=== PATIENT | female | born 1945 | race Two or more races ===

== ENCOUNTER 2018-08-26 16:28 | Inpatient (IN) | payer MEDICARE ==
[~2018-08-26] VITALS: Ht 162.6 cm; Wt 49.0 kg
--- NOTE | 2018-08-26 16:42 | NUR ---
BIB [facility] 79 FROM [facility] C/O MORE ALTERED THAN USUAL, LOW BP=77/51 CRAY FISHING HAND, 200ML NS GIVEN IN THE FIELD, RE=022. PT DENIES PAIN. DAUGHTER STATES SHE IS NORMALLY ALERT AND VERY CHATTY. SKIN INTACT, NO ACUTE DISTRESS NOTED. DENIES DIZZINESS, WEAKNESS. READY FOR EVAL.
[2018-08-26] MEDS ORDERED: ONDANSETRON HCL/PF 4 MG/2 ML VIAL IVP ONE (17:30)
[2018-08-26] MEDS ORDERED: IV NS 0.9% 1,000 ML BAG IV ONE ×2 (17:30→20:00)
[2018-08-26] MEDS ORDERED: ONDANSETRON HCL/PF 4 MG/2 ML VIAL ONE (17:30)
--- NOTE | 2018-08-26 17:45 | NUR ---
CLEARING HOUSE CLERK UNABLE TO DRAW BLOOD. STATES WILL GET SOMEONE ELSE.
--- NOTE | 2018-08-26 18:29 | NUR ---
PT TAKEN TO CT VIA TERRA
--- NOTE | 2018-08-26 19:02 | NUR ---
URINE COLLECTED AND SENT TO STAT LAB. PHLEB AT BEDSIDE FOR SECOND ATTEMPT
[2018-08-26] MEDS ORDERED: LEVOFLOXACIN 750 MG /D5W 150ML 150 ML IV ONE ×2 (19:19→19:30)
[2018-08-26 19:21] LABS: BASOPHILS # (AUTO) 0.1 /CMM (0.0-0.2); BASOPHILS % (AUTO) 0.7 % (0.0-2.0); HEMATOCRIT 49 % (33-45); HEMOGLOBIN 14.5 g/dL (11.5-14.8); LYMPHOCYTES # (AUTO) 0.9 /CMM (0.8-4.8); LYMPHOCYTES % (AUTO) 4.5 % (20.0-44.0); MEAN CORPUSCULAR HGB CONC 30 g/dl (31.0-36.0); MEAN CORPUSCULAR VOLUME 101 fL (82-100); MONOCYTES # (AUTO) 1.4 /CMM (0.1-1.30); MONOCYTES % (AUTO) 6.8 % (2.0-12.0); NEUTROPHILS # (AUTO) 18.6 /CMM (1.8-8.9); PLATELET COUNT (AUTO) 124 /CMM (150-450); RED BLOOD CELL COUNT(AUTO) 4.78 MIL/uL (4.0-5.2); WHITE BLOOD COUNT (AUTO) 21.1 K/uL (4.3-11.0)
[2018-08-26] MEDS ORDERED: CLINDAMYCIN IV RTU IN D5W 900 MG/50 ML PIGGYBACK IV ONE (19:30)
[2018-08-26 19:39] LABS: ALANINE AMINOTRANSFERASE 24 U/L (12-78); ALBUMIN 2.5 g/dL (3.4-5.0); ALKALINE PHOSPHATASE 81 U/L (46-116); ASPARTATE AMINOTRANSFERASE 31 U/L (15-37); BILIRUBIN,DIRECT 0.3 mg/dL (0.0-0.2); CALCIUM, SERUM 8.5 mg/dL (8.5-10.1); CARBON DIOXIDE 15 mmol/L (21-32); CREATININE 3.4 mg/dL (0.6-1.3); GLUCOSE 184 mg/dL (74-106); LIPASE 814 U/L (73-393); POTASSIUM 3.5 mmol/L (3.5-5.1); TOTAL PROTEIN, SERUM 6.3 g/dL (6.4-8.2)
[2018-08-26 19:43] LABS: SODIUM SERUM 183 mmol/L (136-145)
[2018-08-26 19:44] LABS: CHLORIDE 146 mmol/L (98-107)
[2018-08-26 19:45] LABS: UREA NITROGEN, BLOOD 80 mg/dL (7-18)
[2018-08-26 19:54] LABS: APPEARANCE,URINE Clear (CLEAR); BILIRUBIN,URINE SMALL (NEGATIVE); BLOOD, URINE Small Ery/uL (NEGATIVE); COLOR,URINE Yellow (YELLOW); KETONES,URINE Negative (NEGATIVE); LEUKOCYTE ESTERASE ,URINE Negative (NEGATIVE); NITRITE, URINE Negative (NEGATIVE); PH,URINE 5.5 (5.0-8.0); PROTEIN,URINE 100 mg/dl (NEGATIVE); UGLUCOSE Negative (NEGATIVE); UROBILINOGEN,URINE 0.2 EU/dL (0.2)
--- NOTE | 2018-08-26 20:07 | NUR ---
Patient is resting comfortably in bed with eyes closed. Easily aroused. VSS
[2018-08-26 20:19] LABS: BACTERIA,URINE Few /HPF (None Seen); MUCUS,URINE Few /LPF (None Seen); SQUAMOUS EPITHELIAL CELL,UR Moderate /HPF (None Seen); URINE AMORPHOUS URATE Many /HPF (None Seen); WBC,URINE 0-2 /HPF (0-3)
[2018-08-26] MEDS ORDERED: ACETAMINOPHEN 325 MG TABLET PO PRN (20:30)
[2018-08-26] MEDS ORDERED: TEMAZEPAM 15 MG CAPSULE PO PRN (20:30)
[2018-08-26] MEDS ORDERED: MAGNESIUM HYDROXIDE 30 ML UDC PO PRN (20:30)
[2018-08-26] MEDS ORDERED: HYDROCODONE/APAP 5/325MG 1 EACH TABLET PO PRN (20:30)
[2018-08-26] MEDS ORDERED: ONDANSETRON HCL/PF 4 MG/2 ML VIAL IVP PRN (20:30)
[2018-08-26] MEDS ORDERED: MAG HYDROX/AL HYDROX/SIMETH 30 ML UDC PO PRN (20:30)
[2018-08-26] MEDS ORDERED: Z GUARD REMEDY 2 OZ OINT TP PRN (20:30)
[2018-08-26] MEDS ORDERED: LEVOFLOXACIN 750 MG /D5W 150ML 750 MG in PREMIX 1 EA IV SCH (21:00)
[2018-08-26] MEDS ORDERED: AZTREONAM 1 G in IV NS 0.9% 100 ML IV SCH (21:00)
[2018-08-26 21:09] LABS: OSMOLALITY,URINE 541 mOS/kg (340-1090)
[2018-08-26 21:12] LABS: URINE SODIUM, RANDOM 17 mmol/l (40-220)
--- NOTE | 2018-08-26 21:33 | NUR ---
REPORT GIVEN TO NANO CARDONA FOR YOLANDA
--- NOTE | 2018-08-26 21:41 | NUR ---
ABX TO CONTINUE INFUSION ON FLOOR
--- NOTE | 2018-08-26 21:47 | NUR ---
PT TRANSFERRED TO FLOOR
[2018-08-26 22:00] VITALS: BP 91/60
--- NOTE | 2018-08-26 22:00 | NUR ---
rn notes patient arrived with levaquin IV infusing on Right forearm IV line. infused with no complications
[2018-08-26] MEDS: IV NS 0.9% 1,000 ML IV PRN (23:33)
[2018-08-27] VITALS: BP 98/52
--- NOTE | 2018-08-27 02:00 | NUR ---
RN NOTES PATIENT PULLED OUT IV LINE. INSERTED NEW IV AT LEFT FOREARM 22g. patient is non compliant and confused and also kept pulling the quality assurance monitor. SPoke with fidencio with new order for bilateral wrist restraints. orders noted and carried out.
[2018-08-27 04:00] VITALS: BP 109/50
[2018-08-27] MEDS ORDERED: AZTREONAM 1 G VIAL ONE (05:16)
[2018-08-27] MEDS: AZTREONAM 500 MG in IV NS 0.9% 50 ML IV SCH ×3 (05:18→20:31)
[2018-08-27 07:34] LABS: BASOPHILS # (AUTO) 0.1 /CMM (0.0-0.2); BASOPHILS % (AUTO) 0.3 % (0.0-2.0); HEMATOCRIT 42 % (33-45); HEMOGLOBIN 12.8 g/dL (11.5-14.8); LYMPHOCYTES # (AUTO) 1.6 /CMM (0.8-4.8); LYMPHOCYTES % (AUTO) 10.1 % (20.0-44.0); MEAN CORPUSCULAR HGB CONC 31 g/dl (31.0-36.0); MEAN CORPUSCULAR VOLUME 98 fL (82-100); MONOCYTES % (AUTO) 6.4 % (2.0-12.0); NEUTROPHILS # (AUTO) 13.1 /CMM (1.8-8.9); NEUTROPHILS % (AUTO) 83.2 % (43.0-81.0); PLATELET COUNT (AUTO) 85 /CMM (150-450); RED BLOOD CELL COUNT(AUTO) 4.25 MIL/uL (4.0-5.2); WHITE BLOOD COUNT (AUTO) 15.8 K/uL (4.3-11.0)
[2018-08-27 07:39] LABS: CALCIUM, SERUM 8.8 mg/dL (8.5-10.1); CARBON DIOXIDE 20 mmol/L (21-32); CREATININE 3.2 mg/dL (0.6-1.3); GLUCOSE 125 mg/dL (74-106); LIPASE 319 U/L (73-393); MAGNESIUM 2.3 mg/dL (1.8-2.4); PHOSPHORUS 2.2 mg/dL (2.5-4.9)
--- NOTE | 2018-08-27 07:40 | NUR ---
YOLANDA RN OPENING NOTES: RECEIVED PT IN BED. PT IS A/O X 1-2. NO SOB OR ACUTE SIGNS OF DISTRESS NOTED. BREATHING IS EVEN AND UNLABORED. PT ON 2 L VIA NC AND SATING AT 94%. SHE DENIES ANY PAIN AT THIS TIME. IV TO PT'S LEFT FA NOTED TO BE PATENT AND INTACT. NO REDNESS OR SIGNS OF INFILTRATION NOTED. BED IN LOW LOCKED POSITION, SIDE RAILS UP X3, CALL LIGHT WITHIN REACH. BILATERAL SOFT WRIST RESTRAINTS NOTED PT IS SEEN PULLING INVASIVE LINES. GOOD CAP REFILL AND PERIPHERAL PULSES NOTED. WILL CONTINUE TO MONITOR
[2018-08-27 07:44] LABS: CHOLESTEROL 158 mg/dL (<200); HDL CHOLESTEROL 27 mg/dL (40-60); LDL 103 mg/dL (0-99); THYROID STIMULATING HORMONE 0.011 uIU/mL (0.358-3.74); TRIGLYCERIDES 162 mg/dL (30-150)
[2018-08-27 07:47] LABS: CHLORIDE 145 mmol/L (98-107); POTASSIUM 2.5 mmol/L (3.5-5.1); SODIUM SERUM 180 mmol/L (136-145); UREA NITROGEN, BLOOD 84 mg/dL (7-18)
[2018-08-27 08:00] VITALS: BP 97/55
--- NOTE | 2018-08-27 08:00 | NUR ---
OUTDOOR EDUCATION TEACHER NOTES: CRITICAL LAB (S) HAIM MOLINA INFORMED OF PT'S CRITICAL POTASSIUM, SODIUM, CHLORIDE, AND BUN. NO NEW ORDERS GIVEN AT THIS TIME. STATES THAT HE WILL REVIEW HER OVERALL CLINICAL PICTURE AND MAKE FURTHER RECOMMENDATIONS AT A LATER TIME Addendum: 08/27/18 at 1525 by LISETTE HILL RN Dk MANZO
[2018-08-27 09:00] LABS: BAND % (MANUAL) 1 % (0.0-5.0); LYMPHOCYTES % (MANUAL) 11 % (16-48); MONOCYTES % (MANUAL) 3 % (0-11.0); NEUTROPHILS % (MANUAL) 85 (42-76)
[2018-08-27] MEDS: IV NS 0.9% 1,000 ML IV PRN ×2 (09:41→18:28)
--- NOTE | 2018-08-27 11:11 | NUR ---
YOLANDA RN NOTES: MD ROUNDING (DR. DUPREE) MD AT BEDSIDE AND UPDATED ON PT'S CONDITION ALONG WITH BNP LABS. MD MADE AWARE OF CRITICAL VALUES. MD STATES THAT HE WILL PUT IN ORDERS FOR ELECTROLYTE REPLACEMENTS
[2018-08-27 12:00] VITALS: BP 104/50
--- NOTE | 2018-08-27 13:52 | NUR ---
YOLANDA NOTES: MD REMINDER (DR. CERON) REMINDED OF REPLACEMENT ORDERS. NO ORDERS NOTED AT THIS TIME
[2018-08-27] MEDS: ENSURE ENLIVE CHOC 237 ML CAN PO SCH ×2 (14:00→18:10)
--- NOTE | 2018-08-27 15:03 | NUR ---
YOLANDA NOTES: CATERING MANAGER ROUNDING (HAIM MOLINA) CATERING MANAGER AT BEDSIDE AND UPDATED ON PT'S CONDITION ALONG WITH CURRENT CONSULTATIONS. MD ALSO MADE AWARE THAT NO ORDERS HAVE BEEN IMPUTED FOR ELECTROLYTE REPLACEMENT. VERBAL ORDER GIVEN TO REPEAT BNP AND NOTIFY CATERING MANAGER IN A FEW HRS IF NO ORDERS OBTAINED FROM DR. BARNES
[2018-08-27 15:30] LABS: CALCIUM, SERUM 9.1 mg/dL (8.5-10.1); CARBON DIOXIDE 17 mmol/L (21-32); CREATININE 3.1 mg/dL (0.6-1.3); GLUCOSE 173 mg/dL (74-106)
[2018-08-27 15:47] LABS: CHLORIDE 146 mmol/L (98-107); POTASSIUM 2.7 mmol/L (3.5-5.1); UREA NITROGEN, BLOOD 90 mg/dL (7-18)
[2018-08-27 15:48] LABS: SODIUM SERUM 180 mmol/L (136-145)
[2018-08-27 16:00] VITALS: BP_SYST 100; BP_SYST 93; BP_DIAS 45; BP_DIAS 49
[2018-08-27] MEDS ORDERED: NEUTRA PHOS 1 POWD.PACKET PO ONE (16:00)
--- NOTE | 2018-08-27 16:58 | NUR ---
YOLANDA RN NOTES: DR. CERON CALL BACK CALLED RECEIVED FROM . MADE AWARE OF BMP RESULTS. ORDER GIVEN TO REPLACE K WITH 40 MEQ VIA IV,. PHOSPHORUS AUTOMATICALLY REPLACED BY PHARMACIST
[2018-08-27] MEDS: POTASSIUM CL. PREMIX PERIPHER. 50 ML IV SCH ×4 (18:10→21:41)
--- NOTE | 2018-08-27 18:42 | NUR ---
PT COMPLAINING OF HIP PAIN. HAIM MILLER MADE AWARE OF PT'S HX OF FALL A MONTH AGO ACCORDING TO PT'S DAUGHTER. VERBAL ORDER OBTAINED FOR LEFT HIP XRAY.
--- NOTE | 2018-08-27 18:44 | NUR ---
YOLANDA CLOSING NOTES: PT STABLE AT THIS TIME. ALL NEEDS ANTICIPATED FOR AND MET DURING SHIFT. ALL DUE MEDS GIVEN. POTASSIUM REPLACEMENT STARTED. SHE REMAINS SR ON THE TEL MONITOR. VSS THROUGHOUT SHIFT. PT TOLERATING NS INFUSION WELL. PT REPOSITIONED AND TURNED PER PROTOCOL. SAFETY MEASURES AND SEIZURE PRECAUTIONS IN PLACE. WILL ENDORSE TO NIGHTSHIFT RN FOR MATTHEW
[2018-08-27 20:00] VITALS: BP 96/57
--- NOTE | 2018-08-27 20:00 | NUR ---
YOLANDA/RN NOTES: RECEIVED PT. IN BED W/ SON PRESENT AT BEDSIDE. A/O X 1-2 W/ CONFUSION. ON TELE MONITOR W/ SR. W/ SOFT WRIST RESTRAINTS PRESENT. INCONTINENT OF B/B. W/ LFA G 22 PATENT AND INTACT W/NO S/S OF INFECTION/INFILTRATION NOTED. DENIES ANY C/O PAIN OR SOB AT PRESENT. W/IVF OF NS @ 125 ML/HR. WILL CONTINUE TO MONITOR.
[2018-08-27] MEDS ORDERED: DOXYCYCLINE 100 MG VIAL ONE (23:54)
[2018-08-28] VITALS: BP 92/46
[2018-08-28] MEDS: DOXYCYCLINE 100 MG in IV D5W 100 ML IV SCH ×3 (00:06→21:22)
[2018-08-28] MEDS: IV NS 0.9% 1,000 ML IV PRN (03:33)
[2018-08-28 04:00] VITALS: BP 106/50
[2018-08-28] MEDS: AZTREONAM 500 MG in IV NS 0.9% 50 ML IV SCH ×3 (06:08→20:39)
[2018-08-28 07:45] LABS: CARBON DIOXIDE 16 mmol/L (21-32); CREATININE 2.8 mg/dL (0.6-1.3); GLUCOSE 139 mg/dL (74-106); PHOSPHORUS 2.7 mg/dL (2.5-4.9); POTASSIUM 3.5 mmol/L (3.5-5.1); UREA NITROGEN, BLOOD 74 mg/dL (7-18)
[2018-08-28 07:50] LABS: CHLORIDE 153 mmol/L (98-107); SODIUM SERUM 184 mmol/L (136-145)
[2018-08-28 08:00] VITALS: BP 94/43
[2018-08-28] MEDS: ENSURE ENLIVE CHOC 237 ML CAN PO SCH ×3 (08:00→17:27)
--- NOTE | 2018-08-28 08:00 | NUR ---
YOLANDA/RN NOTES: RECEIVED PT. IN BED SLEEPING W/ RESPIRATIONS EVEN AND UNLABORED. ON TELE MONITOR W/ SR 95. NO FACIAL GRIMACES OR MOANING NOTED. W/ LYNDON. SOFT WRIST RESTRAINTS ON. ALERT TO SELF. INCONTINENT OF B/B. W/ LFA G 22 PATENT AND INTACT W/ NO S/S OF INFECTION/INFILTRATION NOTED. CRITICAL LAB CALLED BY ANTONINO AT 7:50 AM W/ NA OF 184 TRENDING UP AND CL OF [address] DUPREE VISITED PT/W NEW ORDERS NOTED AND CARRIED OUT. PAGED GREGOR PREPARATION ROOM MANAGER TO INFORM ABOUT THE LABS W/ NO NEW ORDERS. DAUGHTER VISITED PT. SOFT RESTRAINS OFF . CALL LIGHT W/ REACH. ALL NEEDS MEET. WILL CONTINUE TO MONITOR.
[2018-08-28] MEDS: IV D5W 1,000 ML IV PRN (09:10)
[2018-08-28 12:00] VITALS: BP 98/56
--- NOTE | 2018-08-28 12:36 | NUR ---
TELE/RN NOTES: REPORT GIVEN TO NURSE SOTO FOR MATTHEW.
[2018-08-28 12:37] LABS: BASOPHILS # (AUTO) 0.1 /CMM (0.0-0.2); BASOPHILS % (AUTO) 0.8 % (0.0-2.0); EOSINOPHILS % (AUTO) 0.1 % (0.0-6.0); HEMATOCRIT 42 % (33-45); HEMOGLOBIN 12.4 g/dL (11.5-14.8); LYMPHOCYTES # (AUTO) 0.8 /CMM (0.8-4.8); LYMPHOCYTES % (AUTO) 5.3 % (20.0-44.0); MEAN CORPUSCULAR HGB CONC 30 g/dl (31.0-36.0); MEAN CORPUSCULAR VOLUME 101 fL (82-100); MONOCYTES # (AUTO) 0.7 /CMM (0.1-1.30); MONOCYTES % (AUTO) 4.7 % (2.0-12.0); NEUTROPHILS % (AUTO) 89.1 % (43.0-81.0); PLATELET COUNT (AUTO) 73 /CMM (150-450); RED BLOOD CELL COUNT(AUTO) 4.12 MIL/uL (4.0-5.2); WHITE BLOOD COUNT (AUTO) 15.7 K/uL (4.3-11.0)
[2018-08-28 14:43] LABS: CALCIUM, SERUM 9.2 mg/dL (8.5-10.1); CARBON DIOXIDE 19 mmol/L (21-32); CREATININE 2.7 mg/dL (0.6-1.3); GLUCOSE 157 mg/dL (74-106); POTASSIUM 3.7 mmol/L (3.5-5.1); UREA NITROGEN, BLOOD 67 mg/dL (7-18)
[2018-08-28 15:01] LABS: CHLORIDE 151 mmol/L (98-107); SODIUM SERUM 182 mmol/L (136-145)
[2018-08-28 16:00] VITALS: BP 97/56
[2018-08-28 17:20] LABS: BAND % (MANUAL) 26 % (0.0-5.0); LYMPHOCYTES % (MANUAL) 11 % (16-48); MONOCYTES % (MANUAL) 5 % (0-11.0); NEUTROPHILS % (MANUAL) 58 (42-76)
[2018-08-28 17:59] LABS: ABG BASE EXCESS -10.2 mmol/L; ABG OXYGEN SATURATION 86.5 % (92.0-98.5); ABG PCO2 32.3 mmHg (35.0-45.0); ABG PH 7.292 (7.350-7.450); ABG PO2 52.5 mmHg (75.0-100.0); AaDO2 58.6 mmHg; COHb 0.7 % (0.5-1.5); MetHb 0.6 % (0.0-1.5); O2Hb 85.4 % (94.0-97.0); SITE, ABG Right Radial; VENT MODE, BG ROOM AIR
[2018-08-28 20:00] VITALS: BP 129/64
[2018-08-28] MEDS: LEVOFLOXACIN 500 MG /D5W 100ML 100 ML IV SCH (22:21)
--- NOTE | 2018-08-28 22:52 | NUR ---
WAGON WASHER INITIAL NOTES: RECEIVED PT. IN BED W/ DAUGHTER PRESENT AT BEDSIDE. A/O X 1 EYES CLOSED NOT ABLE TO OPEN EYES. ON TELE MONITOR W/ SR. W/ SOFT WRIST RESTRAINTS PRESENT, BUT RELEASED. INCONTINENT OF B/B. W/ RH G 22 PATENT AND INTACT W/NO S/S OF INFECTION/INFILTRATION NOTED, AM RN REPORTED PT DID NOT EAT ANY FOOD ALL DAY, CONT' ON IV FLUIDS @ 125 ML/HR, WILL F/U WITH AND POSSIBLE [facility] IN AM. NO SIGN OF PAIN OR SOB AT PRESENT. W/IVF OF NS @ 125 ML/HR. WILL CONTINUE TO MONITOR.
[2018-08-29] VITALS: BP 95/52
[2018-08-29 04:00] VITALS: BP 100/53
[2018-08-29] MEDS: AZTREONAM 500 MG in IV NS 0.9% 50 ML IV SCH ×3 (04:26→21:04)
--- NOTE | 2018-08-29 06:28 | NUR ---
SHOE CASER CLOSING NOTES: ENDORSED PT. IN BED AT BEDSIDE. A/O X 1 EYES CLOSED ABLE TO OPEN EYES. ON TELE MONITOR W/ SR. W/ SOFT WRIST RESTRAINTS PRESENT, BUT RELEASED. INCONTINENT OF B/B, BM X 1 L IN AM. W/ RH G 22 PATENT AND INTACT W/NO S/S OF INFECTION/INFILTRATION NOTED, AM RN REPORTED PT DID NOT EAT ANY FOOD ALL DAY, CONT' ON IV FLUIDS @ 125 ML/HR, WILL F/U WITH AND POSSIBLE [facility] IN AM. NO SIGN OF PAIN OR SOB AT PRESENT. W/IVF OF NS @ 125 ML/HR. WILL CONTINUE TO MONITOR.
[2018-08-29 07:27] LABS: BASOPHILS % (AUTO) 0.1 % (0.0-2.0); EOSINOPHILS % (AUTO) 0.3 % (0.0-6.0); HEMATOCRIT 36 % (33-45); HEMOGLOBIN 11.4 g/dL (11.5-14.8); LYMPHOCYTES # (AUTO) 0.9 /CMM (0.8-4.8); LYMPHOCYTES % (AUTO) 6.6 % (20.0-44.0); MEAN CORPUSCULAR HGB CONC 31 g/dl (31.0-36.0); MEAN CORPUSCULAR VOLUME 97 fL (82-100); MONOCYTES # (AUTO) 0.5 /CMM (0.1-1.30); MONOCYTES % (AUTO) 3.2 % (2.0-12.0); NEUTROPHILS # (AUTO) 12.7 /CMM (1.8-8.9); NEUTROPHILS % (AUTO) 89.8 % (43.0-81.0); RED BLOOD CELL COUNT(AUTO) 3.73 MIL/uL (4.0-5.2); WHITE BLOOD COUNT (AUTO) 14.1 K/uL (4.3-11.0)
[2018-08-29 07:35] LABS: PLATELET COUNT (AUTO) 48 /CMM (150-450)
[2018-08-29 07:45] LABS: ALANINE AMINOTRANSFERASE 21 U/L (12-78); ALBUMIN 1.5 g/dL (3.4-5.0); ALKALINE PHOSPHATASE 91 U/L (46-116); ASPARTATE AMINOTRANSFERASE 28 U/L (15-37); BILIRUBIN,TOTAL 0.6 mg/dL (0.2-1.0); CALCIUM, SERUM 9.5 mg/dL (8.5-10.1); CARBON DIOXIDE 17 mmol/L (21-32); CREATININE 2.2 mg/dL (0.6-1.3); GLUCOSE 142 mg/dL (74-106); PHOSPHORUS 2.8 mg/dL (2.5-4.9); POTASSIUM 2.9 mmol/L (3.5-5.1); TOTAL PROTEIN, SERUM 5.3 g/dL (6.4-8.2); UREA NITROGEN, BLOOD 51 mg/dL (7-18)
[2018-08-29 07:49] LABS: CHLORIDE 140 mmol/L (98-107); SODIUM SERUM 172 mmol/L (136-145)
--- NOTE | 2018-08-29 07:57 | NUR ---
FIRE EXTINGUISHER REPAIRER INSPECTOR NOTES RECEIVED PT. IN BED A/O X 2 EYES CLOSED W/ OCCASSIONAL OPENING. PT UNABLE TO RESPOND TO VERBAL COMMANDS. ON TELE MONITOR W/ SR. W/ SOFT WRIST RESTRAINTS PRESENT, BUT RELEASED. INCONTINENT OF B/B. W/ RH G 22 PATENT AND INTACT W/NO S/S OF INFECTION/INFILTRATION NOTED, PM RN REPORTED PT DID NOT EAT DURING NIGHT SHIFTIV FLUIDS @ 125 ML/HR CONTINUED. WILL F/U WITH AND POSSIBLE [facility]. WILL CONTINUE TO MONITOR.
[2018-08-29 08:00] VITALS: BP 97/51
[2018-08-29 08:47] LABS: BAND % (MANUAL) 5 % (0.0-5.0); LYMPHOCYTES % (MANUAL) 3 % (16-48); MONOCYTES % (MANUAL) 3 % (0-11.0); NEUTROPHILS % (MANUAL) 89 (42-76)
[2018-08-29] MEDS: DOXYCYCLINE 100 MG in IV D5W 100 ML IV SCH ×2 (09:52→21:43)
--- NOTE | 2018-08-29 10:00 | NUR ---
LEAD SLOT TECHNICIAN NOTES ABNORMAL LABS REPORTED TO BRODIE ALMAGUER,SAID SHE WILL COME AND SEE THE PT.
[2018-08-29] MEDS: ENSURE ENLIVE CHOC 237 ML CAN PO SCH ×3 (10:14→16:54)
[2018-08-29] MEDS: IV D5W 1,000 ML IV PRN ×2 (11:30→11:45)
[2018-08-29] MEDS: POTASSIUM CL. PREMIX PERIPHER. 50 ML IV SCH ×6 (11:38→18:11)
[2018-08-29] MEDS ORDERED: ACETAMINOPHEN 650 MG/SUPP.RECT RC PRN (12:00)
--- NOTE | 2018-08-29 13:58 | NUR ---
SUPERINTENDENT DRILLING AND PRODUCTION NOTES IV ALBUMIN IS STILL PENDING TO DELIVER FROM THE PHARMACY.
[2018-08-29] MEDS: ALBUMIN 25% 25 GM in PREMIX 1 EA IV SCH ×3 (14:44→16:53)
--- NOTE | 2018-08-29 19:04 | NUR ---
ORDERLY CLOSING NOTES: PATIENT LYING IN BED, A/O X 1, EYES MOSTLY CLOSED BUT OPENS EYES OCCASSIONALLY. VITAL SIGNS WNL. NO SOB OR ACUTE DISTRESS NOTED. RH G 22 PATENT AND INTACT W/NO S/S OF INFECTION/INFILTRATION NOTED. PATIENT HAS NOT EATEN ALL DAY. NUMEROUS FAMILY MEMBERS AT SIDE MOST OF THE DAY. SAFETY MEASURES IN PLACE. BED IN LOW LOCKED POSITION. PATIENT CARE ENDORSED TO PRINTING BINDERY ASSISTANT RN.
--- NOTE | 2018-08-29 20:32 | NUR ---
MS1 RN NOTES RECEIVED ON BED ON HIGH FOWLERS POSITION,NON VERBAL,DNR/DNI STATUS.ON D5W AT 150ML/HR RATE INFUSING ON RIGHT HAND VIA IV PUMP,SITE PATENT.DIAPERED.O2 AT 3L/NC IN USED.CALL LIGHT IN REACH.WILL CONTINUE TO MONITOR STATUS.
[2018-08-29 21:00] VITALS: BP 98/60
[2018-08-30] MEDS: IV D5W 1,000 ML IV PRN ×2 (01:42→18:45)
[2018-08-30] MEDS: AZTREONAM 500 MG in IV NS 0.9% 50 ML IV SCH ×3 (04:26→22:35)
[2018-08-30 05:00] VITALS: BP 104/52
--- NOTE | 2018-08-30 07:20 | NUR ---
MS1 RN NOTES NO SIGNIFICANT CHANGE IN STATUS,APHASIC,IVF IN PROGRESS.IN NO ACUTE DISTRESS.ENDORSED TO LILIAN MCGILL FOR MATTHEW.
[2018-08-30 07:41] LABS: BASOPHILS % (AUTO) 0.2 % (0.0-2.0); EOSINOPHILS % (AUTO) 0.9 % (0.0-6.0); HEMATOCRIT 31 % (33-45); HEMOGLOBIN 9.8 g/dL (11.5-14.8); LYMPHOCYTES % (AUTO) 8.1 % (20.0-44.0); MEAN CORPUSCULAR HGB CONC 32 g/dl (31.0-36.0); MEAN CORPUSCULAR VOLUME 95 fL (82-100); MONOCYTES # (AUTO) 0.4 /CMM (0.1-1.30); MONOCYTES % (AUTO) 3.4 % (2.0-12.0); NEUTROPHILS # (AUTO) 10.7 /CMM (1.8-8.9); NEUTROPHILS % (AUTO) 87.4 % (43.0-81.0); RED BLOOD CELL COUNT(AUTO) 3.22 MIL/uL (4.0-5.2); WHITE BLOOD COUNT (AUTO) 12.3 K/uL (4.3-11.0)
[2018-08-30 07:59] LABS: CALCIUM, SERUM 9.6 mg/dL (8.5-10.1); CARBON DIOXIDE 17 mmol/L (21-32); CREATININE 1.7 mg/dL (0.6-1.3); GLUCOSE 127 mg/dL (74-106); MAGNESIUM 2.1 mg/dL (1.8-2.4); PHOSPHORUS 1.9 mg/dL (2.5-4.9); POTASSIUM 3.3 mmol/L (3.5-5.1); UREA NITROGEN, BLOOD 45 mg/dL (7-18)
[2018-08-30 08:00] VITALS: BP 120/50
[2018-08-30] MEDS: ENSURE ENLIVE CHOC 237 ML CAN PO SCH ×3 (08:00→17:00)
[2018-08-30 08:07] LABS: CHLORIDE 138 mmol/L (98-107); SODIUM SERUM 168 mmol/L (136-145)
[2018-08-30 08:13] LABS: PLATELET COUNT (AUTO) 38 /CMM (150-450)
[2018-08-30 09:06] LABS: BAND % (MANUAL) 3 % (0.0-5.0); EOSINOPHILS % (MANUAL) 1 % (0-4); LYMPHOCYTES % (MANUAL) 9 % (16-48); MONOCYTES % (MANUAL) 5 % (0-11.0); NEUTROPHILS % (MANUAL) 82 (42-76)
[2018-08-30] MEDS ORDERED: POTASSIUM CHLORIDE 10 MEQ TABLET.SA PO ONE (10:30)
[2018-08-30] MEDS: DOXYCYCLINE 100 MG in IV D5W 100 ML IV SCH ×2 (10:40→23:18)
[2018-08-30] MEDS ORDERED: POTASSIUM CHLORIDE 20 MEQ POWDER PACKET GT ONE (11:00)
[2018-08-30 16:00] VITALS: BP 126/58
[2018-08-30] MEDS ORDERED: K PHOS NEUTRAL 250 MG TABLET PO ONE (16:00)
--- NOTE | 2018-08-30 18:00 | NUR ---
MS RN Notes Patient asleep, resting in bed. Alert and oriented x1, but arousable to name and touch. No complaints of pain at this time. No acute events this shift. Respirations even and unlabored on 2 L oxygen via nasal cannula, no acute distress noted. Midline to the left upper arm intact, patent and infusing fluids as ordered. Updated patient and family on current plan of care and safety measures. Family at bedside, verbalized understanding. Safety and fall precautions in place: bed in lowest and locked position, side rails up x2, bed alarm on, call light and personal possessions within reach. Will endorse to NANO Avilez for continuity of care.
--- NOTE | 2018-08-30 19:15 | NUR ---
MS/RN OPENING NOTES PT RESTING COMFORTABLY IN BED. FAMILY AT BEDSIDE. OPENS EYES SPONTANEOUSLY. ON 2L O2 VIA NC, BREATHING EVEN AND UNLABORED. IN NO ACUTE DISTRESS. NO S/S OF SOB OR PAIN. MEREDITH MIDLINE PATENT AND INTACT RUNNING IVF ORDERED. BED REMAINS IN LOW/LOCKED POSITION WITH CALL LIGHT IN REACH. SIDE RAILS UPX3 AND BED ALARM ON FOR SAFETY. WILL CONTINUE TO MONITOR
[2018-08-30] MEDS: LEVOFLOXACIN 500 MG /D5W 100ML 100 ML IV SCH (21:49)
[2018-08-30 22:00] VITALS: BP 94/46
[2018-08-31 04:00] VITALS: BP 127/82
[2018-08-31] MEDS: IV D5W 1,000 ML IV PRN ×2 (05:18→18:19)
[2018-08-31] MEDS: AZTREONAM 500 MG in IV NS 0.9% 50 ML IV SCH (05:26)
--- NOTE | 2018-08-31 06:32 | NUR ---
MS/RN CLOSING NOTES PT RESTING COMFORTABLY IN BED. OPENS EYES. REMAINS ON 2L O2 VIA NC, BREATHING EVEN AND UNLABORED. IN NO ACUTE DISTRESS. NO S/S OF SOB OR PAIN. MEREDITH MIDLINE PATENT AND INTACT RUNNING IVF ORDERED. TURNED/REPOSITIONED Q2H. HEELS OFFLOADED. ASPIRATION /SEIZURE PRECAUTIONS IMPLEMENTED. NO SIGNIFICANT CHANGES OVERNIGHT. BED REMAINS IN LOW/LOCKED POSITION WITH CALL LIGHT IN REACH. SIDE RAILS UPX3 AND BED ALARM ON FOR SAFETY. WILL ENDORSE TO DAY SHIFT RN MATTHEW.
--- NOTE | 2018-08-31 06:59 | NUR ---
MS/RN NOTES PT WITH 2 LOOSE/WATERY BM'S. HX OF C.DIFF. WILL ENDORSE TO DAY SHIFT RN TO COLLECT NEXT LOOSE BM AND SEND FOR C.DIFF ALONG WITH PAPER FORM PER PROTOCOL
[2018-08-31 07:07] LABS: BASOPHILS % (AUTO) 0.1 % (0.0-2.0); EOSINOPHILS % (AUTO) 0.9 % (0.0-6.0); HEMATOCRIT 32 % (33-45); HEMOGLOBIN 10.4 g/dL (11.5-14.8); LYMPHOCYTES # (AUTO) 0.8 /CMM (0.8-4.8); LYMPHOCYTES % (AUTO) 7.1 % (20.0-44.0); MEAN CORPUSCULAR HGB CONC 32 g/dl (31.0-36.0); MEAN CORPUSCULAR VOLUME 94 fL (82-100); MONOCYTES # (AUTO) 0.6 /CMM (0.1-1.30); NEUTROPHILS # (AUTO) 9.8 /CMM (1.8-8.9); NEUTROPHILS % (AUTO) 86.9 % (43.0-81.0); RED BLOOD CELL COUNT(AUTO) 3.43 MIL/uL (4.0-5.2); WHITE BLOOD COUNT (AUTO) 11.2 K/uL (4.3-11.0)
[2018-08-31 07:30] LABS: ALANINE AMINOTRANSFERASE 49 U/L (12-78); ALBUMIN 1.9 g/dL (3.4-5.0); ALKALINE PHOSPHATASE 124 U/L (46-116); ASPARTATE AMINOTRANSFERASE 97 U/L (15-37); BILIRUBIN,TOTAL 0.8 mg/dL (0.2-1.0); CALCIUM, SERUM 9.3 mg/dL (8.5-10.1); CARBON DIOXIDE 20 mmol/L (21-32); CREATININE 1.5 mg/dL (0.6-1.3); GLUCOSE 145 mg/dL (74-106); MAGNESIUM 1.9 mg/dL (1.8-2.4); PHOSPHORUS 1.9 mg/dL (2.5-4.9); POTASSIUM 3.3 mmol/L (3.5-5.1); TOTAL PROTEIN, SERUM 5.2 g/dL (6.4-8.2); UREA NITROGEN, BLOOD 38 mg/dL (7-18)
[2018-08-31 07:47] LABS: CHLORIDE 130 mmol/L (98-107); SODIUM SERUM 161 mmol/L (136-145)
[2018-08-31 07:53] LABS: PLATELET COUNT (AUTO) 38 /CMM (150-450)
[2018-08-31 07:57] LABS: BAND % (MANUAL) 2 % (0.0-5.0); EOSINOPHILS % (MANUAL) 1 % (0-4); LYMPHOCYTES % (MANUAL) 10 % (16-48); MONOCYTES % (MANUAL) 7 % (0-11.0); NEUTROPHILS % (MANUAL) 80 (42-76)
[2018-08-31 08:00] VITALS: BP 124/52
--- NOTE | 2018-08-31 08:00 | NUR ---
rn notes RECEIVED PATIENT IN THE BED, A/O X1, BUT FOLLOW DIRECTION, ON O2-2LNS NO ACUTE RESPIRATORY DISTRESS, UNLABORED. V.S TAKEN STABLE, PATIENT HAS MIDLINE ON LEFT UA INTACT INFUSING D5W AT 150 ML/HR INTACT, SCHEDULED MEDICATION ADMINISTERED CRUSH MIXED WITH BOOST, SPEECH THERAPIST WITH THE PATIENT, PATIENT HAS MULTIPLE WOUNDS, AND ALEX, ASSIST PATIENT TURN AND REPOSTION Q 2 HR. DAUGHTER NEXT TO THE BED.
--- NOTE | 2018-08-31 09:00 | NUR ---
RN NOTES PATIENT POOR EATER EAT 10%, KEEP HOB ELEVATED FOR ASPIRATION PRECAUTION, ASSIST TURN AND REPOSTION Q 2 HR, SAFETY PRECAUTION MAINTAINED ALL THE TIME.
[2018-08-31] MEDS ORDERED: POTASSIUM CHLORIDE 20 MEQ POWDER PACKET GT ONE (09:30)
[2018-08-31] MEDS: ENSURE ENLIVE CHOC 237 ML CAN PO SCH ×3 (09:34→17:00)
[2018-08-31] MEDS: DOXYCYCLINE 100 MG in IV D5W 100 ML IV SCH ×2 (09:34→21:16)
[2018-08-31] MEDS ORDERED: MEROPENEM 500 MG in IV NS 0.9% 50 ML IV ONE (11:00)
[2018-08-31] MEDS: HYDROGEL DRESSING 90 GM TUBE TP SCH (11:19)
[2018-08-31] MEDS ORDERED: K PHOS NEUTRAL 250 MG TABLET PO ONE (13:00)
--- NOTE | 2018-08-31 13:00 | NUR ---
RN NOTES PATIENT IN THE BED, QUIET, ASSIST TURN AND REPOSTION Q 2 HR, INFUSING D5W 150ML/HR INTACT LEFT UPPER MIDLINE INTACT. CALL LIGHT WITHIN TO REACH, SAFETY PRECAUTION MAINTAINED ALL THE TIME.
[2018-08-31 16:00] VITALS: BP 109/46
--- NOTE | 2018-08-31 18:19 | NUR ---
RN NOTES ADMINISTERED TYLENOL 650 MG PO PRN FOR PAIN PER PATIENT REQUEST, ALSO ADMINISTERED SCHEDULED MEDICATION. PER NEUROLOGY PATIENT STAE SHE WANTED TO DYE. DAUGHTER NEXT TO THE BED. CALL LIGHT WITHIN TO REACH. CONTINUED MONITORING. ENDORSED ONCOMING NURSE FOR PLAN OF CARE.
--- NOTE | 2018-08-31 19:45 | NUR ---
MS/RN INITIAL NOTES PATIENT RESTING IN BED, WITH EYES SEMI OPEN, BREATHING EVEN AND UNLABORED, NO ACUTE DISTRESS NOTED NO S/S OF SOB OR PAIN NOTED AT THIS TIME, REMAINS ON 2L O2 VIA NC, MEREDITH MIDLINE PATENT AND INTACT RUNNING IVF ORDERED, REPOSITION PROVIDED AT THIS TIME, ASPIRATION /SEIZURE PRECAUTIONS IN PLACED AT ALL TIMES, DAUGHTER AT BEDSIDE, BED IN LOW/LOCKED POSITION AND CALL LIGHT IN REACH, SIDE RAILS UPX3, WILL CONTINUE TO MONITOR CLOSELY.
[2018-08-31 20:00] VITALS: BP_SYST 100; BP_SYST 109; BP_DIAS 53; BP_DIAS 61
[2018-08-31] MEDS: MEROPENEM 500 MG in IV NS 0.9% 100 ML IV SCH (21:15)
[2018-09-01] MEDS: IV D5W 1,000 ML IV PRN (03:45)
[2018-09-01 04:00] VITALS: BP 122/47
[2018-09-01 07:11] LABS: BASOPHILS % (AUTO) 0.2 % (0.0-2.0); EOSINOPHILS % (AUTO) 1.6 % (0.0-6.0); HEMATOCRIT 33 % (33-45); HEMOGLOBIN 10.8 g/dL (11.5-14.8); LYMPHOCYTES # (AUTO) 0.9 /CMM (0.8-4.8); LYMPHOCYTES % (AUTO) 9.6 % (20.0-44.0); MEAN CORPUSCULAR HGB CONC 33 g/dl (31.0-36.0); MEAN CORPUSCULAR VOLUME 94 fL (82-100); MONOCYTES # (AUTO) 0.7 /CMM (0.1-1.30); NEUTROPHILS % (AUTO) 81.6 % (43.0-81.0); PLATELET COUNT (AUTO) 64 /CMM (150-450); RED BLOOD CELL COUNT(AUTO) 3.54 MIL/uL (4.0-5.2); WHITE BLOOD COUNT (AUTO) 9.8 K/uL (4.3-11.0)
[2018-09-01 07:49] LABS: CALCIUM, SERUM 9.2 mg/dL (8.5-10.1); CARBON DIOXIDE 20 mmol/L (21-32); CHLORIDE 121 mmol/L (98-107); CREATININE 1.5 mg/dL (0.6-1.3); GLUCOSE 138 mg/dL (74-106); MAGNESIUM 1.8 mg/dL (1.8-2.4); PHOSPHORUS 1.9 mg/dL (2.5-4.9); SODIUM SERUM 154 mmol/L (136-145); UREA NITROGEN, BLOOD 31 mg/dL (7-18)
[2018-09-01 07:56] LABS: POTASSIUM 2.6 mmol/L (3.5-5.1)
[2018-09-01 08:00] VITALS: BP 130/62
[2018-09-01 08:09] LABS: BAND % (MANUAL) 2 % (0.0-5.0); LYMPHOCYTES % (MANUAL) 9 % (16-48); MONOCYTES % (MANUAL) 5 % (0-11.0); NEUTROPHILS % (MANUAL) 84 (42-76)
[2018-09-01] MEDS: HYDROGEL DRESSING 90 GM TUBE TP SCH (08:24)
[2018-09-01] MEDS: ENSURE ENLIVE CHOC 237 ML CAN PO SCH ×3 (08:24→14:21)
[2018-09-01] MEDS: MEROPENEM 500 MG in IV NS 0.9% 100 ML IV SCH ×2 (08:24→21:24)
[2018-09-01] MEDS: POTASSIUM CL. PREMIX PERIPHER. 50 ML IV SCH ×4 (08:28→14:20)
[2018-09-01] MEDS ORDERED: POTASSIUM PHOSPHATE MM 15 MMOL in IV NS 0.9% 250 ML IV SCH (10:00)
[2018-09-01] MEDS: DOXYCYCLINE 100 MG in IV D5W 100 ML IV SCH ×2 (10:04→20:13)
[2018-09-01] MEDS: POTASSIUM PHOSPHATE MM 7.5 MMOL in IV D5W 100 ML IV SCH ×2 (11:04→14:20)
[2018-09-01 12:00] VITALS: BP 130/62
[2018-09-01] MEDS: Potassium Chloride 40 MEQ in IV D5W 1,000 ML IV PRN (17:08)
--- NOTE | 2018-09-01 18:45 | NUR ---
RN AM SHIFT NOTE PATIENT IN BED, RESPONSIVE TO VERBAL AND TACTILE STIMULI. REFUSING TO EAT, MULTIPLE ATTEMPTS MADE. IV FLUIDS RUNNING PER MD ORDER. POTASSIUM LOW TODAY AND REPLACED PER MD ORDER. FAMILY AWARE OF PATIENT REFUSAL TO EAT, MD AWARE. IV PATENT AND INTACT.FAMILY REQUEST MD BRADLEY CONTACT THEM FOR UPDATE IN CONDITION, REGARDING FEEDING.
[2018-09-01 20:00] VITALS: BP 124/55
[2018-09-02 04:00] VITALS: BP 115/64
[2018-09-02] MEDS: Potassium Chloride 40 MEQ in IV D5W 1,000 ML IV PRN (05:00)
--- NOTE | 2018-09-02 06:48 | NUR ---
MS/RN CLOSING NOTES, PATIENT RESTING IN BED, WITH EYES CLOSED, BUT EASILY AROUSABLE TO VERBAL STIMULI, BREATHING EVEN AND UNLABORED, NO ACUTE DISTRESS NOTED NO S/S OF SOB OR PAIN NOTED AT THIS TIME, ON RA SATURATING WELL, MEREDITH MIDLINE PATENT AND INTACT RUNNING IVF ORDERED, ASPIRATION /SEIZURE PRECAUTIONS IN PLACED AT ALL TIMES, BED IN LOW/LOCKED POSITION AND CALL LIGHT IN REACH, NO CHANGE IN CONDITION THROUGHOUT THE NIGHT, SIDE RAILS UPX3, WILL ENDORSE CONTINUITY TO ONCOMING NURSE.
--- NOTE | 2018-09-02 07:30 | NUR ---
RN OPENING NOTE PT WAS RECEIVED AT THIS TIME IN BED WITH SIDE RAILS UP X2, A/O X1-2, BREATHING EVEN AND UNLABORED, NO S/S OF PAIN OR DISTRESS AT THIS TIME, IV PATENT AND INTACT, SAFETY PRECAUTIONS IN PLACE, CALL LIGHT WITHIN REACH, WILL MONITOR ACCORDINGLY.
[2018-09-02 07:59] LABS: ALANINE AMINOTRANSFERASE 129 U/L (12-78); ALBUMIN 1.7 g/dL (3.4-5.0); ALKALINE PHOSPHATASE 283 U/L (46-116); ASPARTATE AMINOTRANSFERASE 169 U/L (15-37); BILIRUBIN,TOTAL 0.9 mg/dL (0.2-1.0); CARBON DIOXIDE 18 mmol/L (21-32); CHLORIDE 116 mmol/L (98-107); CREATININE 1.4 mg/dL (0.6-1.3); GLUCOSE 169 mg/dL (74-106); MAGNESIUM 1.7 mg/dL (1.8-2.4); PHOSPHORUS 2.4 mg/dL (2.5-4.9); POTASSIUM 3.3 mmol/L (3.5-5.1); SODIUM SERUM 149 mmol/L (136-145); TOTAL PROTEIN, SERUM 5.3 g/dL (6.4-8.2); UREA NITROGEN, BLOOD 25 mg/dL (7-18)
[2018-09-02 08:00] VITALS: BP 120/54
[2018-09-02] MEDS: ENSURE ENLIVE CHOC 237 ML CAN PO SCH ×3 (08:00→16:00)
[2018-09-02] MEDS: HYDROGEL DRESSING 90 GM TUBE TP SCH (09:00)
[2018-09-02] MEDS: MEROPENEM 500 MG in IV NS 0.9% 100 ML IV SCH ×2 (09:00→20:34)
[2018-09-02] MEDS: DOXYCYCLINE 100 MG in IV D5W 100 ML IV SCH ×2 (09:00→22:13)
[2018-09-02 09:22] LABS: IMMUNOGLOBULIN A, SERUM 392 mg/dL (64-422); IMMUNOGLOBULIN G, SERUM 934 mg/dL (700-1600); IMMUNOGLOBULIN M, SERUM 58 mg/dL (26-217); T3, FREE 1.1 pg/mL (2.0-4.4)
[2018-09-02] MEDS ORDERED: POTASSIUM CHLORIDE 20 MEQ TAB.PRT.SR PO SCH (09:30)
[2018-09-02] MEDS: Magnesium 1GM/D5W 100ML PREMIX 100 ML IV SCH ×2 (09:31→15:01)
[2018-09-02 12:11] LABS: *SPE A/G RATIO 0.7 (0.7-1.7); *SPE ALPHA-1-GLOBULIN 0.4 g/dL (0.0-0.4); *SPE ALPHA-2-GLOBULIN 0.8 g/dL (0.4-1.0); *SPE BETA GLOBULIN 0.8 g/dL (0.7-1.3); *SPE GLOBULIN, TOTAL 2.8 g/dL (2.2-3.9); *SPE M-SPIKE Not Observed g/dL (Not Observed); *SPEGAMMA GLOBULIN 0.8 g/dL (0.4-1.8)
[2018-09-02 12:48] VITALS: BP 120/54
[2018-09-02] MEDS ORDERED: NEUTRA PHOS 1 POWD.PACKET PO ONE (13:00)
[2018-09-02] MEDS ORDERED: POTASSIUM CHLORIDE 20 MEQ TAB.PRT.SR PO ONE (15:30)
[2018-09-02 16:00] VITALS: BP 112/59
--- NOTE | 2018-09-02 18:26 | NUR ---
RN CLOSING NOTE PT IN BED AT LOWEST AND LOCKED POSITION WITH SIDE RAILS UP X2, PT RESTING COMFORTABLY, BREATHING EVEN AND UNLABORED ON NC 2L, NO S/S OF PAIN OR DISTRESS, IV PATENT AND INTACT, SAFETY PRECAUTIONS IN PLACE, CALL LIGHT WITHIN REACH, WILL ENDORSE TO ELECTRONIC SCANNER OPERATOR RN FOR MATTHEW.
[2018-09-02 20:00] VITALS: BP 123/73
--- NOTE | 2018-09-02 20:25 | NUR ---
CONCRETE PUMP OPERATOR OPENING NOTES RECEIVED REPORT FROM AM RN. PATIENT A/A/O X1-2, ABLE TO MAKE NEEDS KNOWN & STATE PAIN. BREATHING EVEN & UNLABORED, TOLERATING ROOM AIR. RADIAL PULSES PRESENT. LEFT UPPER ARM MIDLINE INTACT & PATENT W/ DRESSING CDI & IVF D5W W/ 40 MEQ KCL INFUSING WELL @ 120 ML/HR. DENIES ANY PAIN OR DISCOMFORT @ THIS TIME. SAFETY MEASURES IN PLACE W/ SIDE RAILS UP & BED ALARM ON. CALL LIGHT WITHIN REACH. TURNED & REPOSITIONED FOR COMFORT. WILL CONTINUE TO MONITOR.
--- NOTE | 2018-09-03 | NUR ---
SHAKER SCREEN OPERATOR NOTES IVF D5W W/ 40 MEQ KCL NOT STOCKED IN PATIENT'S CASSETTE IN MED ROOM. INFORMED DR CARTAGENA THAT ONLY AVAILABLE STOCKED IVF IN NIGHT LOCKER IS D5W W/ 20 MEQ OF KCL. PER DR CARTAGENA, OK TO USE IVF D5W W/ 20 MEQ OF KCL FOR TONIGHT AND CHANGE IT BACK IN THE MORNING. CHARGE NURSE, ANALOG CIRCUIT DESIGNER & AFTER HOURS PHARMACIST AWARE.
[2018-09-03] MEDS ORDERED: POTASSIUM CL. PREMIX PERIPHER. 0 ML ONE (00:39)
[2018-09-03] MEDS ORDERED: IV PREMIX D5W + KCL 1,000 ML IV ONE ×2 (00:59→02:12)
[2018-09-03] MEDS ORDERED: POTASSIUM CL. PREMIX PERIPHER. 50 ML ONE ×2 (00:59→01:00)
[2018-09-03] MEDS ORDERED: Potassium Chloride 20 MEQ in IV D5W 1,000 ML IV ONE (02:00)
[2018-09-03 04:00] VITALS: BP 110/60
[2018-09-03 07:04] LABS: BASOPHILS % (AUTO) 0.4 % (0.0-2.0); EOSINOPHILS % (AUTO) 2.7 % (0.0-6.0); HEMATOCRIT 32 % (33-45); HEMOGLOBIN 10.3 g/dL (11.5-14.8); LYMPHOCYTES % (AUTO) 11.2 % (20.0-44.0); MEAN CORPUSCULAR HGB CONC 33 g/dl (31.0-36.0); MEAN CORPUSCULAR VOLUME 93 fL (82-100); MONOCYTES # (AUTO) 0.7 /CMM (0.1-1.30); NEUTROPHILS # (AUTO) 7.3 /CMM (1.8-8.9); NEUTROPHILS % (AUTO) 77.7 % (43.0-81.0); PLATELET COUNT (AUTO) 102 /CMM (150-450); RED BLOOD CELL COUNT(AUTO) 3.41 MIL/uL (4.0-5.2); WHITE BLOOD COUNT (AUTO) 9.4 K/uL (4.3-11.0)
[2018-09-03 07:15] LABS: ALANINE AMINOTRANSFERASE 104 U/L (12-78); ALBUMIN 1.5 g/dL (3.4-5.0); ALKALINE PHOSPHATASE 348 U/L (46-116); ASPARTATE AMINOTRANSFERASE 115 U/L (15-37); BILIRUBIN,TOTAL 0.6 mg/dL (0.2-1.0); CALCIUM, SERUM 9.3 mg/dL (8.5-10.1); CARBON DIOXIDE 19 mmol/L (21-32); CHLORIDE 117 mmol/L (98-107); CREATININE 1.3 mg/dL (0.6-1.3); GLUCOSE 176 mg/dL (74-106); MAGNESIUM 2.4 mg/dL (1.8-2.4); PHOSPHORUS 3.4 mg/dL (2.5-4.9); POTASSIUM 4.2 mmol/L (3.5-5.1); SODIUM SERUM 147 mmol/L (136-145); TOTAL PROTEIN, SERUM 5.2 g/dL (6.4-8.2); UREA NITROGEN, BLOOD 24 mg/dL (7-18)
--- NOTE | 2018-09-03 07:25 | NUR ---
RN OPENING NOTE RECEIVED PATIENT IN BED AWAKE, PRESIDENT [employer] WAS CHECKING FOR VS. A&O ONLY TO SELF AND HER BDAY. HAS A PROMINENT LEFT FRONTAL HEAD THAT HAD A DEBRIDEMENT 08/27. COVERED WITH MEPILEX. HAS A LEFT UPPER ARM MIDLINE WITH D5 KCL 20 MEQ RUNNING AT 120ML/HR. WILL ORDER D5 KCL 40 MEQ AFTER THIS DOSE, PER MD ORDER. BED LOCKED AND ON LOW POSITION. CALL LIGHT WITHIN REACH. WILL CONT TO MONITOR
[2018-09-03 08:00] VITALS: BP 111/60
[2018-09-03] MEDS: DOXYCYCLINE 100 MG in IV D5W 100 ML IV SCH ×2 (08:34→21:37)
[2018-09-03] MEDS: MEROPENEM 500 MG in IV NS 0.9% 100 ML IV SCH (08:34)
[2018-09-03] MEDS: HYDROGEL DRESSING 90 GM TUBE TP SCH (08:34)
[2018-09-03] MEDS: ENSURE ENLIVE CHOC 237 ML CAN PO SCH ×3 (08:41→17:00)
[2018-09-03] MEDS ORDERED: Potassium Chloride 40 MEQ in IV D5W 1,000 ML IV PRN (11:30)
[2018-09-03] MEDS: IV D5W 1,000 ML IV PRN ×2 (11:41→21:47)
[2018-09-03 16:00] VITALS: BP 103/48
--- NOTE | 2018-09-03 19:01 | NUR ---
RN NOTE PATIENT FINALLY AGREED TO AT LEAST DRINK THE ENSURE. PO INTAKE VERY LOW SINCE NOON. BREAKFAST WAS 50%.
--- NOTE | 2018-09-03 19:16 | NUR ---
RN CLOSING NOTE PT IN BED AT LOWEST AND LOCKED POSITION WITH SIDE RAILS UP X2, PT RESTING COMFORTABLY. FAMILY ON BEDSIDE. BREATHING EVEN AND UNLABORED ON NC 2L, PATIENT TENDS TO REMOVE NC, BUT STILL SATING GOOD. NO S/S OF PAIN OR DISTRESS, IV PATENT AND INTACT, WITH FLUIDS RUNNING D5W AT 120 ML/HR. SAFETY PRECAUTIONS IN PLACE, CALL LIGHT WITHIN REACH, WILL ENDORSE TO JACK MACHINE OPERATOR RN FOR MATTHEW.
[2018-09-03 20:00] VITALS: BP 103/42
--- NOTE | 2018-09-03 20:01 | NUR ---
LABOR AND EMPLOYMENT PARALEGAL OPENING NOTES RECEIVED REPORT FROM FORTINO MCGILL. PATIENT A/A/O X1-2, ABLE TO MAKE NEEDS KNOWN & STATE PAIN. BREATHING EVEN & UNLABORED, TOLERATING ROOM AIR. RADIAL PULSES PRESENT. LEFT UPPER ARM MIDLINE INTACT & PATENT W/ DRESSING CDI & IVF D5W INFUSING WELL @ 120 ML/HR. DENIES ANY PAIN OR DISCOMFORT @ THIS TIME. SAFETY MEASURES IN PLACE W/ SIDE RAILS UP & BED ALARM ON. CALL LIGHT WITHIN REACH. TURNED & REPOSITIONED FOR COMFORT. WILL CONTINUE TO MONITOR.
[2018-09-04 04:00] VITALS: BP 93/44
[2018-09-04 07:11] LABS: BASOPHILS # (AUTO) 0.1 /CMM (0.0-0.2); BASOPHILS % (AUTO) 0.9 % (0.0-2.0); EOSINOPHILS % (AUTO) 4.2 % (0.0-6.0); HEMATOCRIT 29 % (33-45); HEMOGLOBIN 9.5 g/dL (11.5-14.8); LYMPHOCYTES # (AUTO) 1.6 /CMM (0.8-4.8); LYMPHOCYTES % (AUTO) 11.9 % (20.0-44.0); MEAN CORPUSCULAR HGB CONC 33 g/dl (31.0-36.0); MEAN CORPUSCULAR VOLUME 92 fL (82-100); MONOCYTES # (AUTO) 0.8 /CMM (0.1-1.30); MONOCYTES % (AUTO) 6.1 % (2.0-12.0); NEUTROPHILS # (AUTO) 10.2 /CMM (1.8-8.9); NEUTROPHILS % (AUTO) 76.9 % (43.0-81.0); PLATELET COUNT (AUTO) 160 /CMM (150-450); RED BLOOD CELL COUNT(AUTO) 3.11 MIL/uL (4.0-5.2); WHITE BLOOD COUNT (AUTO) 13.3 K/uL (4.3-11.0)
[2018-09-04 07:19] LABS: ALANINE AMINOTRANSFERASE 130 U/L (12-78); ALBUMIN 1.5 g/dL (3.4-5.0); ALKALINE PHOSPHATASE 493 U/L (46-116); ASPARTATE AMINOTRANSFERASE 195 U/L (15-37); BILIRUBIN,TOTAL 0.7 mg/dL (0.2-1.0); CALCIUM, SERUM 9.4 mg/dL (8.5-10.1); CARBON DIOXIDE 23 mmol/L (21-32); CHLORIDE 110 mmol/L (98-107); CREATININE 1.3 mg/dL (0.6-1.3); GLUCOSE 199 mg/dL (74-106); MAGNESIUM 2.2 mg/dL (1.8-2.4); PHOSPHORUS 3.7 mg/dL (2.5-4.9); SODIUM SERUM 144 mmol/L (136-145); TOTAL PROTEIN, SERUM 5.3 g/dL (6.4-8.2); UREA NITROGEN, BLOOD 23 mg/dL (7-18)
[2018-09-04 08:00] VITALS: BP 100/59
[2018-09-04] MEDS: ENSURE ENLIVE CHOC 237 ML CAN PO SCH ×3 (08:40→17:54)
[2018-09-04] MEDS: DOXYCYCLINE 100 MG in IV D5W 100 ML IV SCH (08:40)
[2018-09-04] MEDS: MEROPENEM 500 MG in IV NS 0.9% 100 ML IV SCH ×3 (08:40)
[2018-09-04] MEDS: HYDROGEL DRESSING 90 GM TUBE TP SCH (08:42)
[2018-09-04] MEDS: IV D5W 1,000 ML IV PRN (09:50)
--- NOTE | 2018-09-04 12:25 | NUR ---
PT ATE 50% OF MEAL DRANK ALL ENSURE
[2018-09-04] MEDS ORDERED: Hydrogel Dressing TP (15:40)
[2018-09-04] MEDS ORDERED: MERO500V3 IV (15:40)
[2018-09-04] MEDS ORDERED: ACET325T53 PO (15:40)
[2018-09-04] MEDS ORDERED: DOXY100C PO (15:40)
[2018-09-04 15:59] VITALS: BP 138/70
[2018-09-04 16:00] VITALS: BP 96/56
--- NOTE | 2018-09-04 17:38 | NUR ---
SPOKE WITH [facility]ONICA [facility]ILL [facility] ETA [phone]
--- NOTE | 2018-09-04 20:21 | NUR ---
FRAMING MECHANIC NOTE: PT WAS DISCHARGED TO [facility] IN STABLE CONDITION. NO APPARENT DISTRESS NOTED. NO SOB NOTED. VITAL SIGNS WNL. DAUGHTER DIVINA MADE AWARE. EXIT CARE PROVIDED TO THE PT.
== END 2018-09-04 20:36 | DRG 853 ==
LOC: ER 16:29 → TELE-TD 20:52 → TELE1 08-28 12:00 → MEDSG1 08-29 09:45
PROVIDERS: ADMIT Nurse Practitioner Acute Care; ATTEND Nurse Practitioner Acute Care
PROC: 0KB00ZZ Excision of Head Muscle, Open Approach (ICD-10-PCS; principal; 2018-08-27)
PROC: 05H633Z Insertion of Infusion Device into Left Subclavian Vein, Percutaneous Approach (ICD-10-PCS; 2018-08-30)
PROC: B547ZZA Ultrasonography of Left Subclavian Vein, Guidance (ICD-10-PCS; 2018-08-30)
DX: A41.9 Sepsis, unspecified organism (principal); J15.6 Pneumonia due to other Gram-negative bacteria; J15.9 Unspecified bacterial pneumonia; G93.41 Metabolic encephalopathy; N17.0 Acute kidney failure with tubular necrosis; J69.0 Pneumonitis due to inhalation of food and vomit; E43 Unspecified severe protein-calorie malnutrition; E87.0 Hyperosmolality and hypernatremia; Z68.1 Body mass index [BMI] 19.9 or less, adult; E87.2 Acidosis; K80.21 Calculus of gallbladder without cholecystitis with obstruction; D61.818 Other pancytopenia; S01.80XA Unspecified open wound of other part of head, initial encounter; X58.XXXA Exposure to other specified factors, initial encounter; Y92.129 Unspecified place in nursing home as the place of occurrence of the external cause; E87.6 Hypokalemia; R65.20 Severe sepsis without septic shock; Z86.011 Personal history of benign neoplasm of the brain; Z91.19 Patient's noncompliance with other medical treatment and regimen; Z91.14 Patient's other noncompliance with medication regimen; Z98.890 Other specified postprocedural states; R56.9 Unspecified convulsions; R62.7 Adult failure to thrive; Z88.0 Allergy status to penicillin; Z66 Do not resuscitate; R13.10 Dysphagia, unspecified; M81.0 Age-related osteoporosis without current pathological fracture; K76.0 Fatty (change of) liver, not elsewhere classified; E86.1 Hypovolemia; I48.91 Unspecified atrial fibrillation; E86.0 Dehydration; G90.8 Other disorders of autonomic nervous system; E87.5 Hyperkalemia; D69.6 Thrombocytopenia, unspecified; L30.4 Erythema intertrigo; L98.9 Disorder of the skin and subcutaneous tissue, unspecified; E83.39 Other disorders of phosphorus metabolism
CPT/HCPCS: 36415; 36569; 36600; 70450-TC; 71045-TC; 73020; 76705-TC; 80048-TC; 80053-TC; 80061-TC; 80076-TC; 81000-TC; 82550-TC; 82728-TC; 82784; 82803-TC; 82962-TC; 83540-TC; 83690-TC; 83735-TC; 83935-TC; 84100-TC; 84155; 84165; 84300-TC; 84439-TC; 84443-TC; 84481; 84484-TC; 85025-TC; 85730-TC; 86334; 87040-TC; 87081-TC; 92521; 92526; 97110-TC; 97112-TC; 97116-TC; 97530-TC; A4216; A6248; A6403; G0378; J1956; J2185; J2405; J3475; J3480; J3490; J7030; J7050; J7060; J7070; P9047